=== PATIENT | female | born 1945 | race Caucasian/White ===

== ENCOUNTER 2016-06-20 12:26 | Emergency (ER) | payer OTHER | END 2016-06-20 13:07 | disposition left against medical advice (07) | LOC: ER1 12:26 | DX: Z53.21 Procedure and treatment not carried out due to patient leaving prior to being seen by health care provider (principal) ==

== ENCOUNTER → 2016-06-23 | Outpatient (CLI) | payer OTHER | LOC: MAMO 06-02 09:00 | DX: Z12.31 Encounter for screening mammogram for malignant neoplasm of breast (principal); R05 Cough; Z90.710 Acquired absence of both cervix and uterus | CPT/HCPCS: 71020; G0202 ==

== ENCOUNTER → 2016-08-26 | Outpatient (CLI) | payer OTHER ==
[2016-08-26 10:38] LABS: BUN/CREATININE RATIO 18 (0-10)
== END ==
LOC: LAB 09:09
PROVIDERS: Family Medicine
DX: M19.041 Primary osteoarthritis, right hand (principal); M19.042 Primary osteoarthritis, left hand; I10 Essential (primary) hypertension
CPT/HCPCS: 36415; 73120; 80053; 80061; 86039; 86140; 86200; 86431

== ENCOUNTER → 2020-04-08 | Day surgery (SDC) | payer OTHER ==
[~2020-04-08] MED LIST: ARAVA 20 MG TAB20 MG PO; ARNUITY ELLIPT50 MCG INH; ATORVASTATIN CA20 MG PO; CLARITIN 10MG T10 MG PO; FLUZONE HI IM; GABAPENTIN600 MG PO; HYDROCHLOROTH12.5 M1 PO; LISINOPRIL40 MG PO; LOPRESSOR 25 MG25 MG PO; NEURONTIN600 MG PO; PLAQUENIL 200200 MG PO; POTASSIUM CHLO10 MEQ PO; PREDNISONE5 MG PO; PROAIR HFA8.5 GM INH; PROTONIX 40 MG40 M1 PO; ULTRAM50 MG PO; ZOFRAN 4 MG TAB4 MG PO
== END | disposition home or self-care (01) ==
LOC: OR 07:19
PROVIDERS: Internal Medicine Gastroenterology
PROC: 0DB78ZX Excision of Stomach, Pylorus, Via Natural or Artificial Opening Endoscopic, Diagnostic (ICD-10-PCS; principal; 2020-04-08 11:15)
DX: K31.89 Other diseases of stomach and duodenum (principal); K21.9 Gastro-esophageal reflux disease without esophagitis; K83.8 Other specified diseases of biliary tract; I10 Essential (primary) hypertension; J45.909 Unspecified asthma, uncomplicated; M06.9 Rheumatoid arthritis, unspecified; M48.00 Spinal stenosis, site unspecified; Z79.84 Long term (current) use of oral hypoglycemic drugs; Z79.899 Other long term (current) drug therapy
CPT/HCPCS: J2704; J7040

== ENCOUNTER 2021-02-24 16:48 | Emergency (ER) | payer OTHER ==
[2021-02-24 17:59] LABS: HEMOGLOBIN 13.7 gm/dl (12.3-15.3); RED BLOOD COUNT 4.61 M/UL (4.00-5.10); WHITE BLOOD COUNT 10.3 K/UL (4.5-11.0)
[2021-02-24 18:20] LABS: BUN/CREATININE RATIO 21 (0-10)
[2021-02-25] MEDS ORDERED: ZOFRAN ODT 4 MG4 MG GT (01:47)
== END 2021-02-25 01:55 | disposition home or self-care (01) ==
LOC: ER1 16:48
PROVIDERS: Physician Assistant
DX: N39.0 Urinary tract infection, site not specified (principal); E86.0 Dehydration; E78.5 Hyperlipidemia, unspecified; I10 Essential (primary) hypertension
CPT/HCPCS: 80053; 81001; 82550; 82553; 83690; 83874; 84484; 85025; 87086; 93005; 96374; 96375; 99284; C9113; J2405; Q9967

== ENCOUNTER → 2021-03-13 | Outpatient (CLI) | payer OTHER ==
[~2021-03-13] MED LIST changes: +ZOFRAN ODT 4 MG4 MG GT
== END ==
LOC: KOH-I 03-10 15:30
DX: R93.89 Abnormal findings on diagnostic imaging of other specified body structures (principal); R91.1 Solitary pulmonary nodule
CPT/HCPCS: 71250

== ENCOUNTER → 2021-05-20 | Outpatient (CLI) | payer OTHER | LOC: KOH-I 15:05 | DX: M96.0 Pseudarthrosis after fusion or arthrodesis (principal); M51.37 Other intervertebral disc degeneration, lumbosacral region; M48.07 Spinal stenosis, lumbosacral region; M47.817 Spondylosis without myelopathy or radiculopathy, lumbosacral region | CPT/HCPCS: 72131 ==

== ENCOUNTER → 2021-06-18 | Outpatient (CLI) | payer OTHER ==
[~2021-06-18] MED LIST changes: +GAB TOP; +KET TOP; +LEFLUNOMIDE20 MG PO; +LIDOCAINE TOP; +LORATADINE10 MG PO; +ORENCIA125 MG/1 M SQ
[2021-06-18 11:28] LABS: RED BLOOD COUNT 4.25 M/UL (4.00-5.10); WHITE BLOOD COUNT 7.9 K/UL (4.5-11.0)
[2021-06-18 11:45] LABS: BUN/CREATININE RATIO 19 (0-10)
== END ==
LOC: OPSV2 10:00 → EDSTATUS 10:00 → OPSV2 10:27
PROVIDERS: Orthopaedic Surgery
DX: Z01.818 Encounter for other preprocedural examination (principal); M84.48XA Pathological fracture, other site, initial encounter for fracture; T85.9XXA Unspecified complication of internal prosthetic device, implant and graft, initial encounter
CPT/HCPCS: 36415; 71046; 80048; 81001; 83036; 85025; 85652; 86140; 87081; 93005

== ENCOUNTER → 2021-06-19 | Outpatient (CLI) | payer OTHER | LOC: KOH-I 10:16 | DX: M96.0 Pseudarthrosis after fusion or arthrodesis (principal); M48.07 Spinal stenosis, lumbosacral region; M47.816 Spondylosis without myelopathy or radiculopathy, lumbar region | CPT/HCPCS: 72148 ==

== ENCOUNTER → 2021-06-29 | Outpatient (CLI) | payer OTHER ==
[~2021-06-29] MED LIST changes: +DULOXETINE HCL30 MG PO; +LOPRESSOR 50 MG50 MG PO
[2021-06-29 13:39] LABS: BUN/CREATININE RATIO 13 (0-10)
== END ==
LOC: LAB 12:54
PROVIDERS: Orthopaedic Surgery
DX: Z01.812 Encounter for preprocedural laboratory examination (principal); M96.0 Pseudarthrosis after fusion or arthrodesis
CPT/HCPCS: 36415; 80048; 86850; 86900; 86901

== ENCOUNTER 2021-06-30 05:20 | Inpatient (IN) | payer OTHER ==
[~2021-06-30] VITALS: Ht 160 cm; Wt 58.0 kg
[~2021-06-30 05:20] MED LIST changes: -DULOXETINE HCL30 MG PO; -LOPRESSOR 50 MG50 MG PO
[2021-06-30 17:25] LABS: HEMOGLOBIN 8.7 gm/dl (12.3-15.3); RED BLOOD COUNT 2.82 M/UL (4.00-5.10); WHITE BLOOD COUNT 11.8 K/UL (4.5-11.0)
[2021-06-30 17:35] LABS: BUN/CREATININE RATIO 18 (0-10)
[2021-06-30] MEDS ORDERED: LOPRESSOR 50 MG50 MG PO (20:43)
[2021-06-30] MEDS ORDERED: DULOXETINE HCL30 MG PO (20:43)
[2021-07-01 05:09] LABS: HEMOGLOBIN 8.2 gm/dl (12.3-15.3); RED BLOOD COUNT 2.66 M/UL (4.00-5.10); WHITE BLOOD COUNT 9.2 K/UL (4.5-11.0)
[2021-07-01 05:51] LABS: BUN/CREATININE RATIO 19 (0-10)
[2021-07-02 03:36] LABS: HEMOGLOBIN 8.2 gm/dl (12.3-15.3); RED BLOOD COUNT 2.69 M/UL (4.00-5.10); WHITE BLOOD COUNT 9.8 K/UL (4.5-11.0)
[2021-07-02 05:14] LABS: BUN/CREATININE RATIO 15 (0-10)
[2021-07-03 04:57] LABS: HEMOGLOBIN 8.5 gm/dl (12.3-15.3); RED BLOOD COUNT 2.74 M/UL (4.00-5.10); WHITE BLOOD COUNT 8.9 K/UL (4.5-11.0)
[2021-07-03 05:14] LABS: BUN/CREATININE RATIO 20 (0-10)
[2021-07-04 05:08] LABS: HEMOGLOBIN 7.9 gm/dl (12.3-15.3); RED BLOOD COUNT 2.54 M/UL (4.00-5.10); WHITE BLOOD COUNT 7.3 K/UL (4.5-11.0)
[2021-07-04 05:42] LABS: BUN/CREATININE RATIO 20 (0-10)
[2021-07-04 20:33] LABS: BUN/CREATININE RATIO 23 (0-10)
[2021-07-05 04:30] LABS: HEMOGLOBIN 7.6 gm/dl (12.3-15.3); RED BLOOD COUNT 2.47 M/UL (4.00-5.10); WHITE BLOOD COUNT 6.7 K/UL (4.5-11.0)
[2021-07-05 04:53] LABS: BUN/CREATININE RATIO 19 (0-10)
[2021-07-06 08:19] LABS: HEMOGLOBIN 10.2 gm/dl (12.3-15.3); RED BLOOD COUNT 3.45 M/UL (4.00-5.10); WHITE BLOOD COUNT 8.6 K/UL (4.5-11.0)
[2021-07-06 08:51] LABS: BUN/CREATININE RATIO 12 (0-10)
[2021-07-07 05:23] LABS: HEMOGLOBIN 9.5 gm/dl (12.3-15.3); RED BLOOD COUNT 3.13 M/UL (4.00-5.10); WHITE BLOOD COUNT 7.1 K/UL (4.5-11.0)
[2021-07-07 05:40] LABS: BUN/CREATININE RATIO 19 (0-10)
== END 2021-07-07 15:40 | disposition home health service (06) | DRG 454 ==
LOC: OR 05:20 → CCU 18:39 → OR 18:40 → CCU 18:41
PROVIDERS: Internal Medicine; ADMIT Orthopaedic Surgery
PROC: 0SG10AJ Fusion of 2 or more Lumbar Vertebral Joints with Interbody Fusion Device, Posterior Approach, Anterior Column, Open Approach (ICD-10-PCS; 2021-06-30)
PROC: 0SG1071 Fusion of 2 or more Lumbar Vertebral Joints with Autologous Tissue Substitute, Posterior Approach, Posterior Column, Open Approach (ICD-10-PCS; 2021-06-30)
PROC: 0SB20ZZ Excision of Lumbar Vertebral Disc, Open Approach (ICD-10-PCS; 2021-06-30)
PROC: 4A11X4G Monitoring of Peripheral Nervous Electrical Activity, Intraoperative, External Approach (ICD-10-PCS; 2021-06-30)
PROC: 00QT0ZZ Repair Spinal Meninges, Open Approach (ICD-10-PCS; 2021-06-30)
PROC: 30233N1 Transfusion of Nonautologous Red Blood Cells into Peripheral Vein, Percutaneous Approach (ICD-10-PCS; principal; 2021-07-05)
DX: M96.0 Pseudarthrosis after fusion or arthrodesis (principal); D62 Acute posthemorrhagic anemia; E27.1 Primary adrenocortical insufficiency; T84.296A Other mechanical complication of internal fixation device of vertebrae, initial encounter; G97.41 Accidental puncture or laceration of dura during a procedure; M41.86 Other forms of scoliosis, lumbar region; Z20.822 Contact with and (suspected) exposure to COVID-19; M41.87 Other forms of scoliosis, lumbosacral region; M54.50 Low back pain, unspecified; M06.9 Rheumatoid arthritis, unspecified; G89.29 Other chronic pain; I10 Essential (primary) hypertension; K21.9 Gastro-esophageal reflux disease without esophagitis; J42 Unspecified chronic bronchitis; E83.51 Hypocalcemia; E83.39 Other disorders of phosphorus metabolism; E86.0 Dehydration; R19.7 Diarrhea, unspecified; E88.09 Other disorders of plasma-protein metabolism, not elsewhere classified; I95.1 Orthostatic hypotension; E78.5 Hyperlipidemia, unspecified; Z90.49 Acquired absence of other specified parts of digestive tract; Z91.013 Allergy to seafood; Z91.041 Radiographic dye allergy status; Z79.899 Other long term (current) drug therapy; Z79.52 Long term (current) use of systemic steroids; Z90.710 Acquired absence of both cervix and uterus; Z83.3 Family history of diabetes mellitus
CPT/HCPCS: 36415; 36430; 70450; 71045; 72100; 72110; 74018; 76000; 80048; 80053; 82533; 82607; 82746; 83540; 83550; 83735; 83880; 84100; 84439; 84443; 85025; 85027; 85045; 86850; 86900; 86901; 86920; 87070; 87205; 93880; 97110; 97116; 97116-GP-CQ; 97161; 97530-GP-CQ; C1713; C1762; J0610; J0690; J1040; J1100; J1170; J1644; J2001; J2250; J2405; J2550; J2704; J3010; J3370; J3475; J3480; J7030; J7040; J7120; P9016; P9045; P9047

== ENCOUNTER 2021-07-16 14:38 | Emergency (ER) | payer OTHER ==
[~2021-07-16 14:38] MED LIST changes: +DULOXETINE HCL30 MG PO; +LOPRESSOR 50 MG50 MG PO
[2021-07-16 16:08] LABS: RED BLOOD COUNT 3.34 M/UL (4.00-5.10); WHITE BLOOD COUNT 7.8 K/UL (4.5-11.0)
[2021-07-16 16:28] LABS: BUN/CREATININE RATIO 29 (0-10)
[2021-07-16] MEDS ORDERED: CEFUROXIME500 MG PO (17:19)
== END 2021-07-16 17:40 | disposition home or self-care (01) ==
LOC: ER1 14:38
PROVIDERS: Preventive Medicine Occupational Medicine
DX: N39.0 Urinary tract infection, site not specified (principal); E86.0 Dehydration; I10 Essential (primary) hypertension; Z20.822 Contact with and (suspected) exposure to COVID-19
CPT/HCPCS: 0240U; 80053; 80307; 81001; 82009; 83690; 85025; 85652; 86140; 87077; 87086; 87186; 96374; 96375; 99284; J0696; J2405

== ENCOUNTER 2021-07-28 16:21 | Emergency (ER) | payer OTHER ==
[~2021-07-28 16:21] MED LIST changes: +CEFUROXIME500 MG PO
[2021-07-29] MEDS ORDERED: POTASSIUM CHLO20 ME1 PO (15:54)
== END 2021-07-28 19:43 | disposition left against medical advice (07) ==
LOC: ER1 16:21
DX: Z53.21 Procedure and treatment not carried out due to patient leaving prior to being seen by health care provider (principal)

== ENCOUNTER 2021-07-29 13:06 | Emergency (ER) | payer OTHER ==
[2021-07-29 14:31] LABS: HEMOGLOBIN 10.6 gm/dl (12.3-15.3); RED BLOOD COUNT 3.68 M/UL (4.00-5.10); WHITE BLOOD COUNT 10.3 K/UL (4.5-11.0)
[2021-07-29 15:13] LABS: BUN/CREATININE RATIO 14 (0-10)
[2021-07-29] MEDS ORDERED: POTASSIUM CHLO20 ME1 PO (15:54)
== END 2021-07-29 16:04 | disposition home or self-care (01) ==
LOC: ER1 13:06
PROVIDERS: Family Medicine
DX: M25.551 Pain in right hip (principal); E87.6 Hypokalemia; D64.9 Anemia, unspecified; Z98.890 Other specified postprocedural states; E78.5 Hyperlipidemia, unspecified; Z88.8 Allergy status to other drugs, medicaments and biological substances; W19.XXXA Unspecified fall, initial encounter
CPT/HCPCS: 72192; 73502; 80053; 81001; 82550; 82553; 84484; 85025; 93005; 99284

== ENCOUNTER → 2021-09-15 | Outpatient (CLI) | payer OTHER ==
[~2021-09-15] MED LIST changes: +POTASSIUM CHLO20 ME1 PO
[2021-09-15 14:17] LABS: HEMOGLOBIN 9.5 gm/dl (12.3-15.3); RED BLOOD COUNT 3.33 M/UL (4.00-5.10); WHITE BLOOD COUNT 10.5 K/UL (4.5-11.0)
[2021-09-15 14:33] LABS: BUN/CREATININE RATIO 14 (0-10)
== END ==
LOC: LAB 13:20
PROVIDERS: Nurse Practitioner Family
DX: M25.473 Effusion, unspecified ankle (principal)
CPT/HCPCS: 36415; 80053; 85025; 85652; 86140